=== PATIENT | female | born 1985 | race Two or more races ===

== ENCOUNTER → 2017-04-10 12:55 | Outpatient (CLI) | payer OTHER | END | disposition home or self-care (01) | LOC: LAB 12:55 | DX: N91.2 Amenorrhea, unspecified (principal); E03.8 Other specified hypothyroidism; N91.5 Oligomenorrhea, unspecified ==

== ENCOUNTER 2018-04-28 08:48 | Outpatient (CLI) | payer OTHER | END 2018-04-28 09:58 | disposition home or self-care (01) | LOC: LAB 08:48 | DX: A92.8 Other specified mosquito-borne viral fevers (principal); Z34.00 Encounter for supervision of normal first pregnancy, unspecified trimester; Z11.4 Encounter for screening for human immunodeficiency virus [HIV] ==

== ENCOUNTER 2018-11-28 13:00 | Inpatient (IN) | payer OTHER ==
[~2018-11-28] VITALS: Ht 165.1 cm; Wt 3.2 kg
[2018-11-28] MEDS ORDERED: PRENATAL + DHA1 EAC1 PO (14:07)
[2018-11-28] MEDS ORDERED: SYNTHROID75 MCG PO (14:07)
[2018-12-10] MEDS ORDERED: IBUPROFEN800 MG PO (13:18)
[2018-12-10] MEDS ORDERED: LEVOTHYROXINE75 MCG PO (13:18)
[2018-12-10] MEDS ORDERED: SIMETHICONE125 M1 PO (13:18)
[2018-12-10] MEDS ORDERED: Tylenol Extra Streng PO (13:18)
== END 2018-12-10 13:37 | disposition home or self-care (01) | DRG 785 ==
LOC: O/R 13:00 → SURG-SUITE 12-07 05:20 → O/R 12-07 05:20 → OB/GYN 12-07 07:00 → SURG-SUITE 12-07 11:07 → OB/GYN 12-07 13:00 → SURG-SUITE 12-10 13:37 → OB/GYN 12-13 13:00
PROVIDERS: ADMIT Obstetrics & Gynecology
PROC: 0UB70ZZ Excision of Bilateral Fallopian Tubes, Open Approach (ICD-10-PCS; 2018-12-07)
PROC: 4A1HXCZ Monitoring of Products of Conception, Cardiac Rate, External Approach (ICD-10-PCS; 2018-12-07)
PROC: 10D00Z1 Extraction of Products of Conception, Low, Open Approach (ICD-10-PCS; principal; 2018-12-07 07:00)
DX: O82 Encounter for cesarean delivery without indication (principal); O34.211 Maternal care for low transverse scar from previous cesarean delivery; Z30.2 Encounter for sterilization; Z37.0 Single live birth; Z3A.39 39 weeks gestation of pregnancy

== ENCOUNTER 2019-08-08 14:03 | Outpatient (CLI) | payer OTHER ==
[~2019-08-08 14:03] MED LIST: IBUPROFEN800 MG PO; LEVOTHYROXINE75 MCG PO; PRENATAL + DHA1 EAC1 PO; SIMETHICONE125 M1 PO; SYNTHROID75 MCG PO; Tylenol Extra Streng PO
== END 2019-08-08 14:13 | disposition home or self-care (01) ==
LOC: SONOGRAMA 14:03 → MAMO-SONO 14:45
PROVIDERS: ATTEND Internal Medicine Endocrinology, Diabetes & Metabolism
DX: E04.1 Nontoxic single thyroid nodule (principal)

== ENCOUNTER 2019-12-18 07:25 | Outpatient (CLI) | payer OTHER ==
[~2019-12-18 07:25] MED LIST changes: +EC-NAPROSYN500 MG PO; +NAPR500T14 PO; +SKELAXIN800 MG PO
== END 2019-12-18 07:36 | disposition home or self-care (01) ==
LOC: RAD 07:25
PROVIDERS: ATTEND Physical Medicine & Rehabilitation
DX: M54.2 Cervicalgia (principal); M54.5 Low back pain; M54.6 Pain in thoracic spine

== ENCOUNTER 2020-11-24 08:00 | Outpatient (CLI) | payer OTHER | END 2020-11-24 08:30 | disposition home or self-care (01) | LOC: PPH VACUNA 08:00 | PROVIDERS: ATTEND Emergency Medicine Pediatric Emergency Medicine | DX: Z23 Encounter for immunization (principal) ==

== ENCOUNTER 2021-07-13 07:52 | Outpatient (CLI) | payer OTHER | END 2021-07-13 08:04 | disposition home or self-care (01) | LOC: MAMO-SONO 07:52 | PROVIDERS: ATTEND Obstetrics & Gynecology | DX: Z12.31 Encounter for screening mammogram for malignant neoplasm of breast (principal); N60.11 Diffuse cystic mastopathy of right breast; N60.12 Diffuse cystic mastopathy of left breast ==

== ENCOUNTER → 2021-11-23 | Outpatient (CLI) | payer OTHER | END | disposition home or self-care (01) | LOC: SONOGRAMA 11:52 | DX: E04.8 Other specified nontoxic goiter (principal) ==